=== PATIENT | female | born 1955 | race Caucasian/White ===

== ENCOUNTER 2016-11-03 16:14 | Inpatient (IN) | payer MEDICARE, OTHER ==
--- NOTE | ~2016-11-03 | OP ---
Record Of Operation [facility] [address] [place]. [address] NAME: JEAN PAUL LINARES : 51 STATUS : ADM IN PAT#: [id number] AGE: 61 ADM/REG DATE : 11/03/16 MR#: [id number] REPORT SERV DATE: 11/04/16 DICTATED BY: CAIO PEDRAZA III DATE: 11/04/16 REPORT STATUS : Draft TRANSCRIBED BY: MODL DATE: 11/04/16 DATE OF PROCEDURE: 11/04/2016 PREOPERATIVE DIAGNOSIS: Left intertrochanteric hip fracture. POSTOPERATIVE DIAGNOSIS: Left intertrochanteric hip fracture. SURGICAL PROCEDURE PERFORMED: Open reduction and internal fixation of left intertrochanteric hip fracture using a 130-degree 4-hole [place] side plate with an 80 mm lag screw. SURGEON: Caio Pedraza M.D. ASSEMBLER TRUCK TRAILER: Patrick. ANESTHESIA: General. ANTIBIOTICS: Ancef 2 g. COMPLICATIONS: None. ESTIMATED BLOOD LOSS: 200 mL. CRYSTALLOID: 1000 mL. DRAINS: None. PROCEDURE IN DETAIL: The patient was brought to the operative room and general anesthesia was induced on her hospital bed. She was then transferred to the fracture table with longitudinal traction applied to the left lower extremity with perineal post in proper position, the right leg in a well-leg rivera, and upper extremities well padded. The left hip, thigh, and femur were entirely prepped and draped in the usual sterile fashion. Assuring good anesthesia, straight lateral approach was made to the left hip extending the incision from the inferior portion of the greater trochanter in line with the femur for approximately 5 inches. The iliotibial band was incised. The vastus lateralis fascia was incised posteriorly and reflected anteriorly with a Samuels retractor. A threaded K-wire was placed up the femoral neck and head with the use of C-arm image in both the AP and lateral planes. This was over reamed with an 80 mm [place] reamer. This was set at an angle of 130 degrees. An 80 mm lag screw was then placed up the femoral neck, and a 130-degree 4- hole side plate was attached and held tightly to the lateral cortex of the femur with self- tapping 4.5 cortical screws. Longitudinal traction was removed and the compression screw was added. C-arm image was used to confirm nice reduction of the fracture in both the AP and lateral planes. Thorough irrigation was carried out. The vastus lateralis was repaired with #1 Vicryl suture. The iliotibial band was repaired with interrupted [id number] #1 Vicryl suture. Subcutaneous tissue was closed with 2-0 Vicryl, and the skin was closed using efrain. 30 mL of 0.5% Marcaine solution was injected into the wound for postoperative pain control. Sterile Aquacel dressing was applied. The patient tolerated Record Of Operation [address] [address] NAME: JEAN PAUL LINARES : 51 STATUS : ADM IN [facility]#: [id number] AGE: 61 ADM/REG DATE : 11/03/16 MR#: [id number] REPORT SERV DATE: 11/04/16 DICTATED BY: CAIO PEDRAZA III DATE: 11/04/16 REPORT STATUS : Draft TRANSCRIBED BY: BETH DATE: 11/04/16 the procedure well and brought to the recovery room in satisfactory condition. TB/BETH Caio Pedraza III, M.D. / [id number] CC: Caio Pedraza III, M.D.
--- NOTE | ~2016-11-03 | DS ---
Discharge Summary [facility] [address] [place]. [address] NAME: JEAN PAUL LINARES : 51 STATUS : DIS IN PAT#: [id number] AGE: 61 ADM/REG DATE : 11/03/16 MR#: [id number] REPORT SERV DATE: 11/15/16 DICTATED BY: CAIO PEDRAZA III DATE: 11/14/16 REPORT STATUS : Draft TRANSCRIBED BY: BETH DATE: 11/14/16 Data Collection from hospitalization DISCHARGE DIAGNOSES: 1. Left intertrochanteric hip fracture. 2. Hypertension. CONSULTATIONS: None. PROCEDURES PERFORMED: Open reduction and internal fixation of the left intertrochanteric hip fracture using a 130-degree 4-hole [place] sideplate with an 80-mm lag screw on 11/04/2016. MEDICATIONS: Norvasc 2.5 mg daily, Eliquis 2.5 mg twice daily x6 weeks, Theragran tablet without minerals one with breakfast, Lopressor 25 mg twice daily, and Zocor 10 mg at bedtime. CONDITION AT DISCHARGE: Upon discharge, she did appear to be doing well and had no complaints. DISPOSITION: She had been discharged with transfer to [facility] to continue a regular diet with activity as discussed. She is to continue with both physical therapy and occupational therapy. She is to follow up with me as instructed. HOSPITAL COURSE: This 61-year-old female was walking her dog, when she lost her balance tripping over her dog injuring her left hip. She was brought to the emergency room here at [facility] where x-ray of the hip revealed a left intertrochanteric hip fracture. She was admitted for orthopedic stabilization of her left hip fracture and further evaluation. Upon admission to the hospital, she had been placed on an NPO diet after midnight. She was begun on Dilaudid at 0.5 mg IV every two hours as needed for pain and Zofran 4 mg IV every 6 hours as needed for nausea or vomiting. Following the day of admission, she had been taken to the Operating Room where she did undergo the above procedure. She tolerated this well and was transferred to the recovery room. On postop day #1, she did appear to be doing well and had been evaluated by Physical Therapy. Her hemoglobin was at 9.8, on postop day #2, she did appear to be comfortable and discharge planning was begun. She was continued on her current medications. On postop day #3, she continued to do well and did appear to be comfortable. She was then discharged with the above instructions. Information collected by: Fahad Jackson. I submit the above information as my discharge summary. PHIL/BETH Caio Pedraza III, M.D. / [id number] CC: Discharge Summary [address] [address] NAME: JEAN PAUL LINARES : 51 STATUS : DIS IN PAT#: [id number] AGE: 61 ADM/REG DATE : 11/03/16 MR#: [id number] REPORT SERV DATE: 11/15/16 DICTATED BY: CIAO PEDRAZA III DATE: 11/14/16 REPORT STATUS : Draft TRANSCRIBED BY: BETH DATE: 11/14/16 Florence Cervantes III, SARA J [facility]
--- NOTE | ~2016-11-03 | HP ---
History And Physical [address] [place]. [address] NAME: JEAN PAUL LINARES : 51 STATUS : ADM IN [facility]#: [id number] AGE: 61 ADM/REG DATE : 11/03/16 MR#: [id number] REPORT SERV DATE: 11/04/16 DICTATED BY: CAIO PEDRAZA III DATE: 11/04/16 REPORT STATUS : Draft TRANSCRIBED BY: MODL DATE: 11/04/16 DATE OF ADMISSION: 11/03/2016 CHIEF COMPLAINT: Left hip pain. HISTORY: The patient is a 61-year-old white female, who was walking her dog when she lost her balance, stripping over her dog injuring her left hip. She was brought to the emergency room here at [facility]. X-rays revealed a left intertrochanteric hip fracture, and she is admitted for orthopedic stabilization of her left hip fracture. PAST MEDICAL HISTORY: Significant for high blood pressure. Otherwise, she denies any diabetes, liver, lung, or kidney problems. ALLERGIES: PENICILLIN. SOCIAL HISTORY: Noncontributory. PHYSICAL EXAMINATION: GENERAL: She is alert and oriented x3. VITAL SIGNS: Stable. HEENT: Normocephalic, atraumatic. Pupils are equal, round, and reactive to light and accommodation. Extraocular muscles are intact. NECK: Supple. CHEST: Clear. HEART: Regular rate and rhythm. ABDOMEN: Benign, soft, nontender. Positive bowel sounds. ORTHOPEDIC: Examination reveals marked tenderness to the left hip. She has quite a bit of pain with minimal attempted internal and external rotation of her left lower extremity. She has some shortening external rotation of the left lower extremity. IMAGING: X-rays confirm a left intertrochanteric hip fracture. PLAN: Admission for ORIF of her left hip with [place] plate and screws. TB/BETH Caio Pedraza III, M.D. / [id number] CC: Caio Pedraza III, M.D.
[2016-11-03 14:56] LABS: BASOPHILS 0.4 %; BASOPHILS ABSOLUTE 0.04 10/3/uL (0.0-0.16); EOSINOPHILS 1.7 %; EOSINOPHILS ABSOLUTE 0.17 10/3/uL (0.0-0.53); ER CBC TAT 0 Hrs 05 Mins; IMMATURE GRANULOCYTES 0.3 %; IMMATURE GRANULOCYTES ABSOLUTE 0.03 10/3/uL (0.0-0.11); LYMPHOCYTES 16.4 %; LYMPHOCYTES ABSOLUTE 1.62 10/3/uL (0.67-4.30); MEAN CORPUS HGB CONC 33.8 g/dL (32.0-36.0); MONOCYTES 5.6 %; MONOCYTES ABSOLUTE 0.55 10/3/uL (0.21-1.20); NEUTROPHILS 75.6 %; NEUTROPHILS ABSOLUTE 7.48 10/3/uL (2.02-8.40); RED CELL COUNT 3.57 10/6/uL (4.0-5.6); WHITE BLOOD CELLS 9.9 10/3/uL (4.5-10.5)
[2016-11-03 15:03] LABS: HEMATOCRIT 36.4 % (36.0-48.0); HEMOGLOBIN 12.3 g/dL (12.0-16.0); MEAN CORPUSCULAR HEMOGLOB 34.5 pg (26.0-34.0); PLATELET COUNT 257 10/3/uL (150-400)
[2016-11-03 15:04] LABS: MANUAL DIFF NO %
[2016-11-03 15:11] LABS: A/G RATIO 0.9 (0.7-1.9); ALBUMIN 3.2 G/DL (3.5-5.0); CHLORIDE, SERUM 108 MMOL/L (96-112); CO2 (CARBON DIOXIDE) 24 MMOL/L (24-34); CREATININE 1.51 MG/DL (0.55-1.02); GFR AFRICAN AMERICAN 42 ML/MIN (>=60); GFR NON AFRICAN AMERICAN 36 ML/MIN (>=60); GLOBULIN 3.7 G/DL (2.5-4.1); POTASSIUM, SERUM 4.2 MMOL/L (3.5-5.3); SGOT(AST) 217 U/L (5-40); SGPT(ALT) 74 U/L (5-65); SODIUM, SERUM 143 MMOL/L (135-148); TOTAL BILIRUBIN 0.4 MG/DL (0-1.2); TOTAL PROTEIN 6.9 G/DL (6.0-8.5)
[2016-11-03 15:12] LABS: ALKALINE PHOSPHATASE 216 U/L (45-117); BUN (BLOOD UREA NITROGEN) 31 MG/DL (6-23); CALCIUM, SERUM 8.7 MG/DL (8.5-10.4); GLUCOSE, SERUM 126 MG/DL (60-99)
[~2016-11-03 16:14] MED LIST: ASAB PO; FOSAMAX70 MG PO; LOP25 PO; NORV25 PO; ZOCOR10 PO
[2016-11-03 17:09] LABS: PARTIAL THROMBO TIME 28.3 SEC (22.5-37.2); PROTIME (NOT ORD) 13.1 SEC (12.0-14.5)
[2016-11-05 04:59] LABS: HEMATOCRIT 30.2 % (36.0-48.0); HEMOGLOBIN 9.8 g/dL (12.0-16.0)
[2016-11-05 05:11] LABS: CREATININE 1.55 MG/DL (0.55-1.02)
[2016-11-06 05:43] LABS: HEMATOCRIT 29.3 % (36.0-48.0); HEMOGLOBIN 9.7 g/dL (12.0-16.0)
[2016-11-07 06:19] LABS: HEMATOCRIT 29.2 % (36.0-48.0); HEMOGLOBIN 9.7 g/dL (12.0-16.0)
[2017-03-09] MEDS ORDERED: AT25 PO (16:03)
== END 2016-11-07 19:00 | DRG 482 ==
LOC: ER 16:14 → 4SO 16:49 → SDC/OF 11-04 14:21 → 1SO 11-04 15:58
PROVIDERS: Emergency Medicine; Orthopaedic Surgery
PROC: 0QS704Z Reposition Left Upper Femur with Internal Fixation Device, Open Approach (ICD-10-PCS; principal; 2016-11-04 11:30)
DX: S72.142A Displaced intertrochanteric fracture of left femur, initial encounter for closed fracture (principal); I10 Essential (primary) hypertension; W01.0XXA Fall on same level from slipping, tripping and stumbling without subsequent striking against object, initial encounter; Z79.82 Long term (current) use of aspirin; Z79.899 Other long term (current) drug therapy; Z88.0 Allergy status to penicillin
CPT/HCPCS: 71010; 73502-LT; 80053; 82565; 85014; 85018; 85025; 85610; 85730; 93005; 97110-GP; 97116-GP; 97161-GP; 97166-GO; 97535-GO; 99285; A9270-GY; C1713; G8978-CL-GP; G8979-CL-GP; G8980-CJ-GP; G8987-CK-GO; G8988-CK-GO; G8989-CK-GO; J0690; J1170; J2250; J2270; J2405; J2550; J2710; J3010

== ENCOUNTER 2017-03-13 10:24 | Inpatient (IN) | payer MEDICARE, OTHER ==
[2017-03-08 16:51] LABS: BASOPHILS 0.7 %; BASOPHILS ABSOLUTE 0.05 10/3/uL (0.0-0.16); EOSINOPHILS 2.3 %; EOSINOPHILS ABSOLUTE 0.17 10/3/uL (0.0-0.53); IMMATURE GRANULOCYTES 0.3 %; IMMATURE GRANULOCYTES ABSOLUTE 0.02 10/3/uL (0.0-0.11); LYMPHOCYTES 28.1 %; LYMPHOCYTES ABSOLUTE 2.06 10/3/uL (0.67-4.30); MEAN CORPUS HGB CONC 32.7 g/dL (32.0-36.0); MEAN CORPUSCULAR HEMOGLOB 31.2 pg (26.0-34.0); MEAN PLATELET VOLUME 10.5 fL (9.2-13.0); MONOCYTES 7.9 %; MONOCYTES ABSOLUTE 0.58 10/3/uL (0.21-1.20); NEUTROPHILS 60.7 %; NEUTROPHILS ABSOLUTE 4.46 10/3/uL (2.02-8.40); PLATELET COUNT 332 10/3/uL (150-400); RBC DISTRIBUTION WIDTH 14.6 % (12.0-16.0); RED CELL COUNT 4.07 10/6/uL (4.0-5.6); WHITE BLOOD CELLS 7.3 10/3/uL (4.5-10.5)
[2017-03-08 16:56] LABS: HEMATOCRIT 38.8 % (36.0-48.0); HEMOGLOBIN 12.7 g/dL (12.0-16.0); MANUAL DIFF NO %; MEAN CORPUSCULAR VOLUME 95.3 fL (80-100)
[2017-03-08 16:58] LABS: INTERNATIONAL NORMAL RATI 0.9 UNITS (-); PARTIAL THROMBO TIME 31.5 SEC (22.5-37.2); PROTIME (NOT ORD) 12.5 SEC (12.0-14.5)
[2017-03-08 17:08] LABS: ASCORBIC ACID (UR NOT ORDER) NEG (NEG); BILIRUBIN, URINE NEGATIVE (NEG); KETONE, URINE NEGATIVE (NEG); LEUKOCYTE ESTERASE(NOT OR TRACE (NEG); WBC (NOT ORDERED) (RFLEX) 13 (0-5)
[2017-03-08 17:13] LABS: BUN (BLOOD UREA NITROGEN) 34 MG/DL (6-23); CALCIUM, SERUM 9.6 MG/DL (8.5-10.4); CHLORIDE, SERUM 106 MMOL/L (96-112); CO2 (CARBON DIOXIDE) 24 MMOL/L (24-34); CREATININE 1.23 MG/DL (0.55-1.02); GFR AFRICAN AMERICAN 54 ML/MIN (>=60); GFR NON AFRICAN AMERICAN 47 ML/MIN (>=60); POTASSIUM, SERUM 4.6 MMOL/L (3.5-5.3); SGOT(AST) 26 U/L (5-40); SGPT(ALT) 20 U/L (5-65); SODIUM, SERUM 139 MMOL/L (135-148); TOTAL BILIRUBIN 0.4 MG/DL (0-1.2); TOTAL PROTEIN 7.9 G/DL (6.0-8.5)
[2017-03-08 17:14] LABS: A/G RATIO 1.1 (0.7-1.9); ALBUMIN 4.1 G/DL (3.5-5.0); ALKALINE PHOSPHATASE 229 U/L (45-117); GLOBULIN 3.8 G/DL (2.5-4.1); GLUCOSE, SERUM 68 MG/DL (60-99)
[~2017-03-13] VITALS: Ht 152.4 cm; Wt 45.4 kg
--- NOTE | ~2017-03-13 | OP ---
Record Of Operation [facility] [address] [place]. [address] NAME: JEAN PAUL LINARES : 51 STATUS : ADM IN PAT#: [id number] AGE: 62 ADM/REG DATE : 03/13/17 MR#: [id number] REPORT SERV DATE: 03/13/17 DICTATED BY: CAIO PEDRAZA III DATE: 03/13/17 REPORT STATUS : Draft TRANSCRIBED BY: MODL DATE: 03/13/17 DATE OF PROCEDURE: 03/13/2017 PREOPERATIVE DIAGNOSIS: Advanced osteoarthritis of left knee, posttraumatic. POSTOPERATIVE DIAGNOSIS: Advanced osteoarthritis of left knee, posttraumatic. SURGICAL PROCEDURE PERFORMED: Left total knee arthroplasty using the DePuy Sigma size 2 TC3 System with a size 2.5 femoral component and size 2 tibial tray with a +10 polyethylene insert, rotating platform design with 35 mm patella. SURGEON: Caio Pedraza M.D. GLASS CUT OFF TENDER: Nestor Barrientos. ANESTHESIA: General. ANTIBIOTICS: Ancef 2 g. COMPLICATIONS: None. TOURNIQUET TIME: 52 minutes. CRYSTALLOID: 1200 mL. ESTIMATED BLOOD LOSS: 75 mL. DRAINS: None. PROCEDURE IN DETAIL: The patient was brought to the operative room, placed on the table in supine position, and general anesthesia was induced. 2 g Ancef was administered intravenously in the operating room. Pneumonic tourniquet was applied to left upper thigh and left lower extremity was prepped and draped in the usual sterile fashion. It was exsanguinated with a 6-inch Esmarch, and the tourniquet was inflated to 350 mmHg. Assuring good anesthesia and after a called time-out by the circulating nurse, a straight midline incision was made directly over the left knee followed by medial arthrotomy. The patella was everted, and the knee was flexed to 90 degrees. Medial and lateral menisci were debrided along the anterior cruciate ligament. A 5 mm step drill was used to enter the femoral canal. Set on 5 degrees valgus for left knee. This was pinned to the distal femur, and the instrument guide was removed. Distal femoral cut was made removing 9 mm of distal femur. The distal femur was trialed to a size 2.5 femoral component, marked along the epicondylar axis. Multi-cutting guide was placed in these cherry, pinned to the distal femur, and the anterior and posterior cuts made along the angled chamfer cuts. The intercondylar cutting guide was next centered and pinned to the distal femur. The reciprocating saw was used to make this cut for the TC3 femoral component. Trial reduction was carried out noting good cuts in all planes. Attention was turned towards the tibial Record Of Operation [address] [place]. [address] NAME: JEAN PAUL LINARES : 51 STATUS : ADM IN PAT#: [id number] AGE: 62 ADM/REG DATE : 03/13/17 MR#: [id number] REPORT SERV DATE: 03/13/17 DICTATED BY: CAIO PEDRAZA III DATE: 03/13/17 REPORT STATUS : Draft TRANSCRIBED BY: MODTeresa DATE: 03/13/17 side. The external tibial cutting guide was aligned with the second metatarsal ray and pinned to the proximal tibia. Oscillating saw was used to make this cut taking more bone off the medial side secondary to longstanding valgus deformity. Trial reduction was carried out with a size 2 tibial baseplate. A drill and a punch were used. A +10 polyethylene insert was added rotating platform design. Good range of motion and stability were noted. Flexion and extension gaps were symmetrical. The undersurface of the patella was then resurfaced by transecting 9 to 10 mm of bone. A 35 mm patellar template was used to place three anchor holes in the undersurface of the patella. Two packs of methylmethacrylate were vacuum mixed, pressurized in the good dry cancellous bone, and the real components were placed. Excess cement was removed. The real size 10 polyethylene insert rotating platform insert was placed. Tourniquet was released after 52 minutes. Bleeding was controlled with Bovie electrocautery. Thorough irrigation was carried out throughout the procedure pulse lavage system. 60 mL of 0.5% Marcaine solution was injected into the knee for postoperative pain control. Medial arthrotomy was closed with #2 Ethibond suture and #1 Vicryl suture in 90 degree flexed position. Subcutaneous tissue was closed with 2-0 Vicryl and the skin was closed using efrain. Sterile postoperative Aquacel dressing was applied. The patient tolerated the procedure well, brought to recovery in satisfactory condition. TB/MODL Caio Pedraza III, M.D. / [id number] CC: Caio Pedraza III, M.D.
--- NOTE | ~2017-03-13 | HP ---
History And Physical [address] [place]. [address] NAME: JEAN PAUL LINARES : 51 STATUS : ADM IN [facility]#: [id number] AGE: 62 ADM/REG DATE : 03/13/17 MR#: [id number] REPORT SERV DATE: 03/13/17 DICTATED BY: CAIO PEDRAZA III DATE: 03/13/17 REPORT STATUS : Draft TRANSCRIBED BY: MODL DATE: 03/13/17 DATE OF ADMISSION: 03/13/2017 CHIEF COMPLAINT: Left knee pain. HISTORY: The patient is a 62-year-old active white female, who complains of pain in the left knee and has so for several years. She states she sustained a tibial plateau fracture years ago, undergone ORIF of her left tibial plateau fracture with plate and screws at [place] by Dr. Alexander. This was 10 years ago. She had the hardware removed. She is now having severe pain in the left knee. Complained of rest pain, night pain, all unrelieved with nonsteroidal antiinflammatory medicines. X-rays confirmed advanced posttraumatic osteoarthritis of her left knee with [id number] deformity of the lateral compartment with valgus alignment and she is admitted for a left total knee arthroplasty. Risks, benefits, and expected outcomes have been explained, but not limited to blood clots, infection, neurovascular injuries, patella maltracking problems, and component failures. She has also had a recent left hip fracture and underwent ORIF with the [place] side plate on 11/04/2016 here at [facility] after falling while walking her dog. She has recovered from her hip fracture, but still using a walker. PAST MEDICAL HISTORY: Medically significant for high blood pressure. Otherwise, she denies any diabetes, liver, lung, or kidney problems. She does complain of some swelling of the ankles. She has a history of high cholesterol. PREVIOUS SURGERIES: Include left knee surgery, left ankle surgery, left hip surgery. MEDICATIONS: Please see the MAR. ALLERGIES: PENICILLIN. SOCIAL HISTORY: Nonsmoker. Nondrinker. PHYSICAL EXAMINATION: GENERAL: She is alert and oriented x3. VITAL SIGNS: Stable. HEENT: Normocephalic and atraumatic. Pupils are equal, round, and reactive to light and accommodation. Extraocular muscles are intact. NECK: Supple. CHEST: Clear. HEART: Regular rate and rhythm. ABDOMEN: Benign, soft, nontender. Positive bowel sounds. ORTHOPEDIC: Reveals marked tenderness to the left knee. She lacks about 25 degrees of terminal extension, limited flexion to 120, well-healed incision to the anterior lateral side, valgus alignment by 10 to 12 degrees. Painful range of motion. 1+ varus and valgus stress. IMAGING: X-rays reveal advanced degenerative changes with valgus alignment. History And Physical [address] [facility] [address] NAME: JEAN PAUL LINARES : 51 STATUS : ADM IN [facility]#: [id number] AGE: 62 ADM/REG DATE : 03/13/17 MR#: [id number] REPORT SERV DATE: 03/13/17 DICTATED BY: CAIO PEDRAZA III DATE: 03/13/17 REPORT STATUS : Draft TRANSCRIBED BY: BETH DATE: 03/13/17 PLAN: Admission for left total knee arthroplasty. TB/BETH Caio Pedraza III, M.D. / [id number] CC: Caio Pedraza III, M.D.
[~2017-03-13 10:24] MED LIST changes: +AT25 PO
[2017-03-14 06:37] LABS: HEMATOCRIT 29.1 % (36.0-48.0); HEMOGLOBIN 9.7 g/dL (12.0-16.0)
[2017-03-15 05:56] LABS: HEMATOCRIT 21.7 % (36.0-48.0); HEMOGLOBIN 7.1 g/dL (12.0-16.0)
[2017-03-15 19:29] LABS: HEMATOCRIT 34.2 % (36.0-48.0); HEMOGLOBIN 11.1 g/dL (12.0-16.0)
[2017-03-16 06:09] LABS: BASOPHILS 0.3 %; BASOPHILS ABSOLUTE 0.02 10/3/uL (0.0-0.16); EOSINOPHILS 2.1 %; EOSINOPHILS ABSOLUTE 0.14 10/3/uL (0.0-0.53); HEMATOCRIT 34.9 % (36.0-48.0); HEMOGLOBIN 11.5 g/dL (12.0-16.0); IMMATURE GRANULOCYTES 0.3 %; IMMATURE GRANULOCYTES ABSOLUTE 0.02 10/3/uL (0.0-0.11); LYMPHOCYTES 17.3 %; LYMPHOCYTES ABSOLUTE 1.16 10/3/uL (0.67-4.30); MEAN CORPUSCULAR HEMOGLOB 28.3 pg (26.0-34.0); MEAN PLATELET VOLUME 10.5 fL (9.2-13.0); MONOCYTES 14.1 %; MONOCYTES ABSOLUTE 0.95 10/3/uL (0.21-1.20); NEUTROPHILS 65.9 %; NEUTROPHILS ABSOLUTE 4.43 10/3/uL (2.02-8.40); RED CELL COUNT 4.07 10/6/uL (4.0-5.6); WHITE BLOOD CELLS 6.7 10/3/uL (4.5-10.5)
[2017-03-16 06:10] LABS: MANUAL DIFF NO %; MEAN CORPUSCULAR VOLUME 85.7 fL (80-100); PLATELET COUNT 201 10/3/uL (150-400); RBC DISTRIBUTION WIDTH 21.4 % (12.0-16.0)
[2017-03-16 06:20] LABS: BUN (BLOOD UREA NITROGEN) 31 MG/DL (6-23); CALCIUM, SERUM 9.1 MG/DL (8.5-10.4); CHLORIDE, SERUM 106 MMOL/L (96-112); CO2 (CARBON DIOXIDE) 20 MMOL/L (24-34); CREATININE 1.24 MG/DL (0.55-1.02); GFR AFRICAN AMERICAN 53 ML/MIN (>=60); GFR NON AFRICAN AMERICAN 46 ML/MIN (>=60); GLUCOSE, SERUM 75 MG/DL (60-99); POTASSIUM, SERUM 4.5 MMOL/L (3.5-5.3); SODIUM, SERUM 137 MMOL/L (135-148)
[2017-03-16] MEDS ORDERED: PCET PO (09:56)
== END 2017-03-16 14:58 | disposition home or self-care (01) | DRG 470 ==
LOC: ENRESERVTM → ENRESERV → ENRESERVDT → SDC/OF 10:24 → 3JRC 10:24 → UNKPRE 12:30 → PACU 17:18 → 3JRC 19:37
PROVIDERS: Orthopaedic Surgery
PROC: 3E0T3CZ (ICD-10-PCS; 2017-03-13)
PROC: 0SRD0J9 Replacement of Left Knee Joint with Synthetic Substitute, Cemented, Open Approach (ICD-10-PCS; principal; 2017-03-13 12:30)
DX: M17.12 Unilateral primary osteoarthritis, left knee (principal); I10 Essential (primary) hypertension; E78.00 Pure hypercholesterolemia, unspecified; Z88.0 Allergy status to penicillin; Z79.899 Other long term (current) drug therapy; Z87.891 Personal history of nicotine dependence
CPT/HCPCS: 36415; 71020; 80048; 80053; 81001; 85014; 85018; 85025; 85610; 85730; 86850; 86900; 86901; 86920; 87641; 88305; 88311; 93005; 97110-GP; 97150-GP; 97161-GP; 97165-GO; A9270-GY; C1776; G8978-CJ-GP; G8979-CI-GP; J0690; J1885; J2250; J2270; J2405; J2710; J2795; J3010; P9016